=== PATIENT | female | born 1985 | race American Indian/Alaskan Native ===

== ENCOUNTER 2019-07-17 17:41 | Emergency (ER) | payer OTHER ==
[2019-07-17 18:12] VITALS: BP 120/69
--- NOTE | 2019-07-17 20:44 | Emergency Department Report ---
Chief Complaint: GI Bleed Stated Complaint: RECTAL PAIN - HPI History of Present Illness: 34 y/o F p/w a cc of rectal pain. Pt states she has a history of anal fissure and is scheduled for corrective surgery. The pt states she ran out of pain medication friday. Pt states she came to ED for pain medication no exam room available for screening provider at this time - Exam Vital Signs: Vital Signs 07/17/19 18:08 Temperature 98.6 F Pulse Rate 99 H Respiratory 16 Rate Blood Pressure 120/69 O2 Sat by Pulse 100 Oximetry MSE screening note: Focused history and physical exam performed. Due to findings the following was ordered: ED Disposition for MSE Condition: Stable
== END 2019-07-17 22:00 | disposition home or self-care (01) ==
LOC: ED 17:41
DX: K62.89 Other specified diseases of anus and rectum (principal); Z53.21 Procedure and treatment not carried out due to patient leaving prior to being seen by health care provider